=== PATIENT | female | born 1995 | race American Indian/Alaskan Native ===

== ENCOUNTER 2017-06-28 20:42 | Inpatient (IN) | payer MEDICAID ==
[2017-06-28] MEDS ORDERED: ePHEDrine SULFATE IV PRN (21:54)
[2017-06-28] MEDS ORDERED: BRETHINE SUB-Q PRN (21:54)
[2017-06-28] MEDS ORDERED: STADOL IV PRN (21:54)
[2017-06-28] MEDS ORDERED: XYLOCAINE 2% INFILTRATI ONE (21:54)
[2017-06-28] MEDS ORDERED: MINERAL OIL PO PRN (21:54)
[2017-06-28] MEDS ORDERED: BRETHINE IVP PRN (21:54)
[2017-06-28] MEDS ORDERED: ZOFRAN IV PRN (21:54)
[2017-06-28] MEDS ORDERED: NARCAN 0.4 MG/1 ML IV PRN (21:54)
[2017-06-28] MEDS ORDERED: LACTATED RINGERS 1,000 ML IV SCH (22:00)
[2017-06-28] MEDS ORDERED: PITOCin/NS 20 UNIT/1000ML DRIP 20 UNITS/1,000 ML BAG IV SCH (22:00)
[2017-06-28 22:20] LABS: Hematocrit 34.2 % (30.3-42.9); Hemoglobin 11.1 gm/dl (10.1-14.3); Mean Corpuscular HGB Conc 33 % (30-34); Mean Corpuscular Hemoglobin 28 pg (28-32); Mean Corpuscular Volume 85 fl (79-97); Platelet Count 212 K/mm3 (140-440); Red Cell Distribution Width 14.7 % (13.2-15.2); White Blood Count 10.1 K/mm3 (4.5-11.0)
[2017-06-28] MEDS: SUBLIMAZE IV PRN (22:21)
[2017-06-29] MEDS: SUBLIMAZE IV PRN ×2 (00:16→01:41)
--- NOTE | 2017-06-29 00:35 | History and Physical Report ---
History of Present Illness Date of examination: 06/29/17 Date of admission: 06/28/17 20:42 Chief complaint: scheduled induction, contractions History of present illness: Pt is a 22 year old -[place]ong[place] female BENOIT 06/21/17 at 41w1d who presents for scheduled induction of labor secondary to postdates. She reports contractions all day 06/28/17 that are getting stronger and more regular and was noted to be 4/80/-2 on admission. She denies leakage of fluid or vaginal bleeding. She has had limited care at [facility] since 33 wks complicated by late entry to care and no care between 33 and 37 wks. She has a h/o genital herpes without lesion or prodrome. She is GBS negative. 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 ) Social history: no significant social history - Obstetrical History Expected Date of Delivery: 06/21/17 Actual Gestation: 41 Week(s) 1 Day(s) : 3 Para: 2 Hx # Term Pregnancies: 2 Number of Pregnancies: 0 Spontaneous Abortions: 0 Induced : 0 Number of Living Children: 2 Medications and Allergies Allergies Allergy/AdvReac Type Severity Reaction Status Date / Time No Known Allergies Allergy Unverified 06/28/17 22:05 Active Meds: Active Medications Butorphanol Tartrate (Stadol) 2 mg IV Q2H PRN PRN Reason: Pain , Severe (7-10) Fentanyl (Sublimaze) 100 mcg IV Q2H PRN PRN Reason: Labor Pain Last Admin: 06/29/17 00:16 Dose: 100 mcg Lactated Ringer's (Lactated Ringers) 1,000 mls @ 125 mls/hr IV DIRECT DARIN Last Admin: 06/28/17 22:22 Dose: 125 mls/hr Oxytocin/Sodium Chloride (Pitocin/Ns 20 Unit/1000ml Drip) 20 units in 1,000 mls @ 125 mls/hr IV DIRECT DARIN Oxytocin/Sodium Chloride (Pitocin/Ns 30 Unit/500ml) 30 units in 500 mls @ 2 mls /hr IV TITR DARIN PRN Reason: Protocol Mineral Oil (Mineral Oil) 30 ml PO QHS PRN PRN Reason: Constipation Naloxone HCl (Narcan 0.4 Mg/1 Ml) 0.1 mg IV Q2MIN PRN PRN Reason: Res Rate </= 8 or 02 SAT < 92% Ondansetron HCl (Zofran) 4 mg IV Q8H PRN PRN Reason: Nausea And Vomiting Last Admin: 06/28/17 22:52 Dose: 4 mg Review of Systems All systems: negative - Vital Signs Vital signs: Vital Signs Pulse BP 103 H 108/65 06/28/17 21:05 06/28/17 21:05 Temp Pulse Resp BP Pulse Ox 50 L 18 108/65 74 L 06/29/17 00:32 06/29/17 00:16 06/28/17 21:05 06/29/17 00:32 - Physical Exam Breasts: Positive: deferred Cardiovascular: Regular rate Lungs: Positive: Clear to auscultation Abdomen: Positive: soft (gravid ) Genitourinary (Female): Positive: normal external genitalia Uterus: Positive: enlarged (gravid ) Extremities: Positive: normal - Obstetrical FHR: auscultation normal Uterine Contraction Monitor Mode: External Cervical Dilatation: 8 Cervical Effacement Percentage: 90 station: -1 Uterine Contraction Frequency (min): q2-3 min Uterine Contraction Pattern: Regular Uterine Tone Measurement Phase: Resting Uterine Contraction Intensity: Strong/Firm Results Result Diagrams: 06/28/17 21:53 All other labs normal. Assessment and Plan A: IUP at 41w1d Active labor Insufficient care GBS negative P: Admit to labor and delivery. Routine intrapartum care.
[2017-06-29] MEDS ORDERED: XYLOCAINE 2% INFILTRATI ONE (00:40)
--- NOTE | 2017-06-29 00:55 | Event Note ---
Date: 06/29/17 Pt called out because she feels that pain medicine no longer effective. AROM performed previously at 00:24 am- clear. Cervix now: /-. Continue routine intrapartum care.
--- NOTE | 2017-06-29 01:19 | Procedure Note ---
OB Delivery Note - Delivery Date of Delivery: 06/29/17 Surgeon: YEN MARTÍNEZ Estimated blood loss: 300cc - Vaginal Delivery presentation: vertex Delivery position: OA Delivery induction: none Delivery augmentation: rupture of membranes Delivery monitor: external FHT, external uterine Route of delivery: Delivery placenta: spontaneous Delivery cord: 3 umbilical vessels Episiotomy: none Delivery laceration: none Anesthesia: intravenous Delivery comments: Pt progressed to complete/complete/+2 and pushed to deliver a viable female over intact perineum under IV anesthesia via . Head delivered in ELOINA position quickly followed by shoulders and body. placed on maternal abdomen for bonding and bulb suctioned. Cord clamped and cut. Cord blood collected. Placenta delivered spontaneously (3VC, intact). Vagina and perineum explored. Perineal abrasion noted to be hemostatic. EBL 300 mL. - Infant A at 1 minute: 8 at 5 minutes: 9 Gender: Female (2819g (6lb 3.4 oz @ 0104 am))
[2017-06-29] MEDS ORDERED: DULCOLAX PR PRN (02:37)
[2017-06-29] MEDS ORDERED: SODIUM CHLORIDE FLUSH SYRINGE 10 ML IV NR (02:37)
[2017-06-29] MEDS ORDERED: PHENERGAN PR PRN (02:37)
[2017-06-29] MEDS ORDERED: DERMOPLAST TP PRN (02:37)
[2017-06-29] MEDS ORDERED: ZOFRAN IV PRN (02:37)
[2017-06-29] MEDS ORDERED: PITOCin/NS 20 UNIT/1000ML DRIP 20 UNITS/1,000 ML BAG IV SCH (02:37)
[2017-06-29] MEDS ORDERED: TUCKS PAD TP PRN (02:37)
[2017-06-29] MEDS ORDERED: LANSINOH TP PRN ×2 (02:37)
[2017-06-29] MEDS ORDERED: PHENERGAN PO PRN (02:37)
[2017-06-29] MEDS ORDERED: TYLENOL PO PRN (02:37)
[2017-06-29] MEDS ORDERED: BENADRYL PO PRN (02:37)
[2017-06-29] MEDS ORDERED: MILK OF MAGNESIA PO PRN (02:37)
[2017-06-29] MEDS ORDERED: NORCO 5/325 PO PRN (02:37)
[2017-06-29] MEDS: MOTRIN PO SCH ×4 (05:09→23:04)
[2017-06-29] MEDS ORDERED: PITOCin/NS 30 UNIT/500ML 30 UNITS/500 ML BAG IV SCH (07:00)
[2017-06-29] MEDS: FEOSOL PO SCH ×2 (11:40→23:04)
[2017-06-29] MEDS: PRENATAL VITAMIN PO SCH (11:40)
[2017-06-29 14:36] LABS: Hematocrit 29.9 % (30.3-42.9); Hemoglobin 10.1 gm/dl (10.1-14.3)
[2017-06-30] MEDS: MOTRIN PO SCH (05:47)
[2017-06-30] MEDS ORDERED: BOOSTRIX IM ONE (06:00)
[2017-06-30] MEDS ORDERED: M-M-R II VACCINE SUB-Q ONE (06:00)
--- NOTE | 2017-06-30 07:57 | Progress Note ---
Assessment and Plan A: PPD#1 s/p at term, Asymtpomatic anemia P: Routine care. Discharge today with follow up in [address] Mckenna. Subjective - Subjective Date of service: 06/30/17 Principal diagnosis: s/p at term Interval history: No complaints. Patient reports: appetite normal, voiding normally, pain well controlled, ambulating normally, no nauseated : doing well Objective - Vital Signs Latest vital signs: Vital Signs Temp Pulse Resp BP 06/30/17 00:00 98.9 F 75 18 111/56 06/29/17 16:00 98.2 F 71 18 101/55 06/29/17 11:35 98 F 77 18 112/50 06/29/17 08:30 98.3 F 66 18 98/54 Intake and Output 06/29/17 06/30/17 06/30/17 22:59 06:59 14:59 Intake Total 240 360 Balance 240 360 Intake: Oral 240 360 Other: Total, Intake Amount 240 120 # Voids Void 1 1 - Exam Breasts: Present: deferred Cardiovascular: Present: Regular rate Lungs: Present: Clear to auscultation Abdomen: Present: soft Uterus: Present: fundal height at umbilicus Extremities: Present: normal - Labs Labs: Abnormal lab results 06/29/17 Range/Units 14:23 Hct 29.9 L (30.3-42.9) %
--- NOTE | 2017-06-30 08:01 | Discharge Summary ---
Providers - Providers Date of Admission: 06/28/17 20:42 Date of discharge: 06/30/17 Attending physician: YEN MARTÍNEZ 06/29/17 02:37 Consult to Dramatic Art Teacher [CONS] Routine Reason For Exam: assistance with , SNS Primary care physician: YEN MARTÍNEZ Hospitalization Reason for admission: active labor, induction of labor Delivery: Procedure details: Please see delivery note. Episiotomy: none Laceration: none Other procedures: none complications: none Discharge diagnosis: IUP at term delivered [place] baby: female Hospital course: Pt was admitted for induction, found to be in active labor, and went on to have a vaginal delivery which she tolerated well. Her course was uncomplicated and she met discharge criteria on PPD#1. Condition at discharge: Stable Disposition: -01 TO HOME OR SELFCARE - Discharge Diagnoses (1) Term of female Status: Acute (2) Anemia Status: Acute Qualifiers: Anemia type: unspecified type Iron deficiency anemia type: I Vitamin B12 deficiency anemia type: V Folate deficiency anemia type: F Bone marrow failure anemia type: B Hemolytic anemia type: H Other causes of anemia: O Chronic kidney disease stage: C Qualified Code(s): D64.9 - Anemia, unspecified (3) Insufficient care in third trimester Status: Acute Plan - Discharge Medications Prescriptions: Ferrous Sulfate [Feosol 325 MG tab] 325 mg PO BID #60 tablet HYDROcodone/APAP 5-325 [[place] 5/325] 1 each PO Q6HR PRN #30 tablet PRN Reason: Pain Ibuprofen [Motrin] 800 mg PO Q8HR PRN #30 tablet PRN Reason: Pain - Provider Discharge Summary Activity: routine, no sex for 6 weeks, no heavy lifting 4 weeks, no strenuous exercise Diet: routine Instructions: routine Additional instructions: [] Smoking cessation referral if applicable(refer to patient education folder for contact #) [] Refer to [facility] Booklet Call your doctor immediately for: * Fever > 100.5 * Heavy vaginal bleeding ( >1 pad per hour) * Severe persistent headache * Shortness of breath * Reddened, hot, painful area to leg or breast * Drainage or odor from incision. * Keep incision clean and dry at all times and follow doctor's instructions regarding bathing/showering - Follow up plan Follow up: FATIMAH BAINS MD [Staff Physician] - 07/27/17 ( exam- please call for appt )
[2017-06-30 09:18] VITALS: BP 98/55
[2017-06-30] MEDS: FEOSOL PO SCH (10:28)
[2017-06-30] MEDS: PRENATAL VITAMIN PO SCH (10:28)
== END 2017-06-30 12:45 | disposition home or self-care (01) | DRG 775 ==
LOC: LD 20:42 → OB 06-29 02:58
PROVIDERS: ADMIT Obstetrics & Gynecology; ATTEND Obstetrics & Gynecology
PROC: 10E0XZZ Delivery of Products of Conception, External Approach (ICD-10-PCS; principal; 2017-06-29)
PROC: 3E0234Z Introduction of Serum, Toxoid and Vaccine into Muscle, Percutaneous Approach (ICD-10-PCS; 2017-06-30)
DX: O48.0 Post-term pregnancy (principal); O99.02 Anemia complicating childbirth; D64.9 Anemia, unspecified; Z3A.41 41 weeks gestation of pregnancy; Z37.0 Single live birth; O09.33 Supervision of pregnancy with insufficient antenatal care, third trimester; Z23 Encounter for immunization; O71.82 Other specified trauma to perineum and vulva
CPT/HCPCS: 36415; 85014; 85018; 85027; 86592; 86850; 86900; 86901; J2405; J2590; J3010; J7120